=== PATIENT | male | born 1950 | race Caucasian/White ===

== ENCOUNTER 2019-03-04 08:41 | Emergency (ER) | payer MEDICARE ==
[~2019-03-04] VITALS: Ht 175.3 cm; Wt 80.0 kg
[2019-03-04 08:51] VITALS: BP 143/95
--- NOTE | 2019-03-04 12:10 | NUR ---
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
== END 2019-03-04 12:12 | disposition home or self-care (01) ==
LOC: ED 11:25
DX: I80.02 Phlebitis and thrombophlebitis of superficial vessels of left lower extremity (principal)
CPT/HCPCS: 99284